=== PATIENT | male | born 1960 | race Caucasian/White ===

== ENCOUNTER → 2017-03-24 | Outpatient (CLI) | payer OTHER ==
[~2017-03-24] MED LIST: ASPCH81X PO; COQ10 PO; CRS5 PO; DUTA0.5C PO; EZET10TA63 PO; IRBE-43 PO; OMEG10007 PO; PANT40TA PO; TAMS0.4C38 PO
--- NOTE | 2017-03-24 11:54 | DIAGNOSTIC IMAGING REPORT ---
BONY ORBITS 3 VIEWS CLINICAL HISTORY: MRI clearance. FINDINGS: 3 views of the bony orbits are obtained. No prior studies are available for comparison at the time of dictation. There is no radiodense/metallic foreign body seen in the region of the bony orbits. The bony orbits are intact as imaged. The visualized paranasal sinuses and the mastoid air cells appear clear. The imaged calvarium appears intact. IMPRESSION: There is no radiodense/metallic foreign body seen in the region of the bony orbits. Electronically signed by: King Still M.D. 03/24/2017 11:53 AM Dictated Date/Time: 03/24/2017 11:52 AM
--- NOTE | 2017-03-24 13:08 | DIAGNOSTIC IMAGING REPORT ---
Right shoulder LEFT UPPER EXT JOINT WITHOUT CLINICAL HISTORY: PAIN L SHOULDER posttraumatic pain TECHNIQUE: Multiaxial MRI acquisition. All images are inverted COMPARISON STUDY: None FINDINGS: Signal characteristics the osseous structures are unremarkable. Again, all images are inverted. There is a full-thickness tear of the mid anterior aspect of the supraspinatus tendon. There is considerable hypertrophic change of the acromioclavicular joint creating components of impingement. Infraspinatus tendon is intact. There is a partial tear of the subscapularis tendon biceps tendon shows moderate atrophic change. IMPRESSION: 1. Note is made that all images are inverted 2. Full-thickness tear supraspinatus tendon with mild musculotendinous retraction of approximately 1.5 cm. 3. Hypertrophic change acromioclavicular joint creating mild impingement. 4. Partial tear subscapularis tendon. 5. Glenoid labrum is intact. Electronically signed by: Fabian Sharma M.D. 03/24/2017 1:06 PM Dictated Date/Time: 03/24/2017 12:55 PM
== END | disposition home or self-care (01) ==
LOC: C.MRIBC 11:24
PROVIDERS: ATTEND Orthopaedic Surgery
DX: M25.512 Pain in left shoulder (principal); S46.012A Strain of muscle(s) and tendon(s) of the rotator cuff of left shoulder, initial encounter; X58.XXXA Exposure to other specified factors, initial encounter; M89.312 Hypertrophy of bone, left shoulder

== ENCOUNTER → 2017-09-15 | Outpatient (CLI) | payer OTHER ==
[2017-09-15 16:40] LABS: BASO % 0.1 %; BASO ABS # 0.01 K/uL (0-0.2); COMPLETE YES; EOS % 1.2 %; IG% 0.1 %; LYMPH % 19.9 %; LYMPH ABS # 1.83 K/uL (1.2-3.4); MEAN CELL VOLUME 89.8 fL (80-100); MEAN CORPUSCULAR HEMOGLOBIN 31.2 pg (25-34); MEAN CORPUSCULAR HGB CONC 34.8 g/dl (32-36); MONO % 7.8 %; NEUT % 70.9 %; PLATELET COUNT 242 K/uL (130-400); WHITE BLOOD COUNT 9.21 K/uL (4.8-10.8)
[2017-09-15 17:22] LABS: BLOOD UREA NITROGEN 26 mg/dl (7-18); BUN/CREATININE RATIO 21.2 (10-20); CALCIUM 9.2 mg/dl (8.5-10.1); CARBON DIOXIDE 29 mmol/L (21-32); CHLORIDE 100 mmol/L (98-107); CREATININE 1.22 mg/dl (0.60-1.40); GLUCOSE 89 mg/dl (70-99); POTASSIUM 4.4 mmol/L (3.5-5.1); SODIUM 137 mmol/L (136-145)
== END | disposition home or self-care (01) ==
LOC: C.CPL 15:30
PROVIDERS: ATTEND Orthopaedic Surgery
DX: M75.122 Complete rotator cuff tear or rupture of left shoulder, not specified as traumatic (principal)

== ENCOUNTER → 2017-10-14 | Day surgery (SDC) | payer OTHER ==
[2017-09-17 10:18] VITALS: Ht 185.4 cm; Wt 106.8 kg
[~2017-10-14] VITALS: Ht 185.4 cm; Wt 106.8 kg
[~2017-10-14] MED LIST changes: +ATROPINE SULFATE 0.1 MG/ML 5ML SYR IV PRN; +BUPIVACAINE/EPINEPHRINE 0.25% 1:200,000 30 ML VIAL ONE; +CEFAZOLIN 2000MG IV PUSH 10 ML IV SCH; +DEXAMETHASONE SOD INJ 4 MG/ML VIAL ONE; +EpHEDrine SULFATE INJ 50 MG/ML AMP IV PRN; +EpINEphrine INJ 1MG/ML AMP 1 MG/ML AMP ONE; +FENTANYL CITRATE INJ 50 MCG/1 ML 2 ML VIAL ONE; +KETOROLAC TROMETHAMINE 30 MG/ML VIAL IV. PRN; +LACTATED RINGER'S 1000ML 1,000 ML IV SCH; +LACTATED RINGER'S 1000ML 500 ML IV SCH; +LIDOCAINE HCL 1% MPF 2 ML VIAL ONE; +LIDOCAINE HCL 2% 2 ML VIAL (20MG/ML) ONE; +MIDAZOLAM HCL 1 MG/ML 2ML VIAL ONE; +ONDANSETRON INJ 2 MG/ML 2 ML VIAL IV PRN; +ONDANSETRON INJ 2 MG/ML 2 ML VIAL ONE; +PROPOFOL IV EMULSION 10 MG/ML 20 ML VIAL IV ONE; +ROPIVACAINE 0.5% 5 MG/ML 30 ML VIAL ONE; +SODIUM CHLORIDE 0.9% 1000ML 1,000 ML IV SCH; +TRAM-10 PO; +TRAMADOL HCL 50 MG TAB PO PRN
--- NOTE | 2017-10-14 08:37 | History & Physical Bridge - [place] ---
H&P Re-Evaluation Bridge Note: I have examined the patient, reviewed the History & Physical and in the interval since the performance of the History & Physical I have noted the following changes of clinical significance: No changes noted
--- NOTE | 2017-10-14 12:18 | [facility] Post Operative Brief Note ---
Immediate Operative Summary Operative Date Oct 14, 2017. Pre-Operative Diagnosis Left Shoulder Rotator Cuff Tear Post-Operative Diagnosis Same Procedure(s) Performed Left Shoulder Arthroscopy, Larege Rotator Cufff Repair, Arthroscopic Bicep Tenodesis. Acromioplasty Surgeon Dr. Loza Lift Team Technician Surgeon(s) Adam Rios PA-C Estimated Blood Loss 5 cc Findings as above Specimens None Complication(s) None Disposition Recovery Room / PACU
--- NOTE | 2017-10-14 12:22 | Discharge Instructions-SurgCtr ---
Discharge Instructions Date of Service Oct 14, 2017. Visit Reason for Visit: Left Shoulder Full Thickness Rotator Cuff Tear Discharge Discharge Diagnosis / Problem: SAME ABOVE Discharge Goals Goal(s): Decrease discomfort, Improve function Medications Stopped Medications Name(s): fish oil, coq10, and aspirin - all stopped on 10-07-17 Restart Stopped Medication(s): MAY RESTART ALL ON 10/15/2017 Activity Recommendations Activity Limitations: as noted below Lifting Limitations: until after follow-up appointment Exercise/Sports Limitations: until after follow-up appointment Anesthesia . Post Anesthesia Instructions: If you have had General Anesthesia or IV Sedation: * Do not drive today. * Resume driving when surgeon permits. * Do not make important decisions or sign legal documents today. * Call surgeon for: 1. Temperature elevations greater than 101 degrees F. 2. Uncontrollable pain. 3. Excessive bleeding. 4. Persistent nausea and vomiting. 5. Medication intolerance (nausea, vomiting or rash). * For nausea and vomiting use only clear liquids such as: tea, soda, bouillon until nausea subsides, then gradually increase diet as tolerated. * If you have any concerns or questions, call your surgeon's office. If physician is unavailable and it is an emergency, call 911 or go to the nearest emergency room. . Instructions / Follow-Up Instructions / Follow-Up MEDICATIONS: * Resume previous medications unless instructed otherwise by your surgeon. * Always take pain medication on a full stomach or with food to avoid upset stomach. * Do not drink alcohol or drive while taking narcotics. * Ibuprofen or Tylenol may be taken if narcotic not needed. SPECIAL CARE INSTRUCTIONS: __ None _X_ Keep extremity elevated and iced x 48 hours; apply ice 20-30 minutes 8-10 times/day. May remove at night. __ Sling __24 hrs/day __ Remove at night _X_ Shoulder Immobilizer (MAY REMOVE AFTER 48 HOURS ONLY TO SHOWER AND FOR THERAPY) _X_ 24 hrs/day __ Remove at night _X_ Dressing __ Maintain until seen in office, may shower with plastic over site _X_ Remove dressings in 24-48 hours and then may shower _X_ Cover incisions with band-aids after showering __ Do not remove steri-strips Call physician if chills or temperature rises above 102 degrees or pain unrelieved by prescribed pain medications at . . Diet Recommendations Home Diet: no limitations Fluid Restriction: None Procedures Procedures Performed: Left Shoulder Arthroscopy, Larege Rotator Cufff Repair, Arthroscopic Bicep Tenodesis. Acromioplasty Pending Studies Studies pending at discharge: no Work Instructions Return To Work: after follow-up Lifting Limitations: NO LIFTING WITH LEFT ARM Medical Emergencies . Who to Call and When: Medical Emergencies: If at any time you feel your situation is an emergency, please call 911 immediately. . Non-Emergent Contact Non-Emergency issues call your: Primary Care Provider Call Non-Emergent contact if: you have a fever, temperature is above 101.5 . . "Provider Documentation" section prepared by Milan Rios. .
[2017-10-14 12:55] VITALS: TEMP 36.1
[2017-10-14 13:25] VITALS: BP 129/85; PULSE 59; O2SAT 96
--- NOTE | 2017-10-14 13:34 | Anesthesia Progress Nt - [facility] ---
Anesthesia Post Op Note Date & Time Oct 14, 2017 at 13:33 Vital Signs Pain Intensity: 0 Vital Signs Past 12 Hours Date Time Temp Pulse Resp B/P (MAP) Pulse Ox O2 Delivery O2 Flow Rate FiO2 10/14/17 13:25 59 16 129/85 (100) 96 Room Air 10/14/17 12:55 36.1 54 20 143/94 (110) 95 Room Air 10/14/17 12:50 36.4 10/14/17 12:49 67 15 10/14/17 12:49 65 15 90 10/14/17 12:46 140/83 (94) 10/14/17 12:44 66 12 10/14/17 12:44 67 12 97 10/14/17 12:43 Room Air 10/14/17 12:41 139/88 (106) 10/14/17 12:39 70 18 10/14/17 12:39 69 18 98 10/14/17 12:36 146/98 (109) 10/14/17 12:34 69 16 10/14/17 12:34 68 16 99 10/14/17 12:31 145/100 (113) 10/14/17 12:29 74 18 10/14/17 12:29 73 18 100 10/14/17 12:26 148/99 (106) 10/14/17 12:24 79 20 100 10/14/17 12:24 78 20 10/14/17 12:23 151/96 (116) 10/14/17 12:19 36.6 84 16 151/96 100 Diffusion Mask 5 10/14/17 10:31 145/83 10/14/17 10:30 73 10/14/17 10:30 74 16 99 10/14/17 10:26 130/85 10/14/17 10:25 70 18 98 10/14/17 10:25 70 10/14/17 10:21 135/76 10/14/17 10:20 66 10/14/17 10:20 66 20 98 10/14/17 10:16 130/81 10/14/17 10:15 65 18 98 10/14/17 10:15 65 10/14/17 10:14 67 20 98 10/14/17 10:14 67 10/14/17 10:11 123/81 10/14/17 10:09 65 98 10/14/17 10:09 65 10/14/17 10:06 126/78 10/14/17 10:04 72 18 98 10/14/17 10:04 69 10/14/17 10:01 142/87 10/14/17 09:59 60 17 149/94 99 10/14/17 09:59 59 10/14/17 09:58 64 16 149/94 (112) 98 Mask 6 10/14/17 09:54 65 96 10/14/17 09:54 64 10/14/17 09:49 65 10/14/17 09:49 69 97 10/14/17 09:44 61 10/14/17 09:44 61 96 10/14/17 09:39 61 97 10/14/17 09:39 60 10/14/17 09:34 59 96 10/14/17 09:34 58 10/14/17 09:29 61 96 10/14/17 09:29 61 10/14/17 09:24 65 10/14/17 09:24 66 96 10/14/17 09:19 62 95 10/14/17 09:19 62 10/14/17 09:14 64 97 10/14/17 09:14 65 10/14/17 09:09 63 96 10/14/17 09:09 65 10/14/17 09:04 64 96 10/14/17 09:04 66 10/14/17 08:16 36.6 67 16 134/93 (107) 94 Room Air Notes Mental Status: alert / awake / arousable, participated in evaluation Pt Amnestic to Procedure: Yes Nausea / Vomiting: adequately controlled Pain: adequately controlled Airway Patency, RR, SpO2: stable & adequate BP & HR: stable & adequate Hydration State: stable & adequate Anesthetic Complications: no major complications apparent
--- NOTE | 2017-10-14 13:57 | OPERATIVE REPORT ---
DATE OF OPERATION: 10/14/2017 PREOPERATIVE DIAGNOSIS: Large left rotator cuff tear with medially subluxated biceps tendon. POSTOPERATIVE DIAGNOSIS: Same. PROCEDURE: Left shoulder diagnostic arthroscopy with limited debridement, acromioplasty, large rotator cuff repair and arthroscopic biceps tenodesis. SURGEON: Dr. Ramesh Loza. POOL LIFEGUARD: Vinny Rios PA-C, whose assistance was necessary for positioning the arm and helping with instrumentation. ANESTHESIA: General with a left interscalene nerve block. COMPLICATIONS: None. CONDITION: Stable to PACU. INDICATIONS: Sulaiman is a very pleasant 57-year-old male who has been dealing with a several year history of left shoulder pain. He does not recall any trauma. MRI and clinical examination were diagnostic for a large rotator cuff tear with medially subluxated biceps tendon. After failing extensive conservative treatment, he elected to proceed with arthroscopy. DESCRIPTION OF PROCEDURE: On 10/14/2017, he arrived at [facility] for the above procedure. He was seen in the preoperative holding area and the operative extremity was identified and signed. He was given preoperative antibiotics and a left interscalene nerve block. He was taken back to the operating room, laid on the table in supine position and put under general anesthesia. He was then put into the beachchair position. The left shoulder was prepped and draped in sterile fashion. Time-out was done and the patient's operative extremity was properly identified. A scope was introduced into the posterior portal. Diagnostic arthroscopy showed no cartilage damage to the humeral head or the glenoid. There was some fraying of the anterior labrum. The biceps tendon was subluxated medially and very frayed. There was a tear of the upper border of the subscapularis. The entire supraspinatus was torn. The infraspinatus and teres minor were intact. An anterior portal was made. A shaver was used to do a limited debridement of the intraarticular structures. The long head of biceps tendon was tagged with an Arthrex FiberLink suture and then tenotomized for later tenodesis. The scope was then put into the subacromial space. A lateral portal was made. A shaver was used to do a complete subacromial and subdeltoid bursectomy. An ablator was used to tease the coracoacromial ligament off the undersurface of the acromion and a 5-0 marichuy was used to complete an acromioplasty of a large Bigliani type 3 acromion. A shaver was used to remove any excess debris and attention was turned to the rotator cuff. There was a tear of the entire supraspinatus. It was basically a crescent-shaped tear without retraction. There was a tear of the upper border of the subscapularis. The upper border of subscapularis was fixed first. An additional anterolateral portal was made and Lula cannulas were placed in each of the lateral portals. The lesser tuberosity was prepared with a ring curette and a microfracture. The upper border of subscap was then fixed with an Arthrex BioComposite SwiveLock suture anchor placed medially. Two FiberTapes were passed through the tendon and then pulled down to a lateral row anchor. This gave a nice knotless SpeedBridge repair. The FiberLink from the long head of the biceps tendon was incorporated into lateral anchor to complete an arthroscopic biceps tenodesis. Attention was then turned to the supraspinatus. The greater tuberosity was prepared with a ring curette and a microfracture. The rotator cuff was then fixed with an Arthrex SpeedBridge configuration using 4.75-mm BioComposite SwiveLock suture anchors and FiberTapes. This gave a really nice repair. Multiple pictures were taken. The scope was placed back into the glenohumeral joint and the articular margin of the rotator cuff had been restored. Pictures were taken. Arthroscopic instruments were removed from the shoulder. Portal sites were closed with 3-0 nylon. He was then placed in a soft dressing and an abduction arm sling. He was then extubated, transferred to a litter and taken to the postanesthesia care unit in stable condition. He tolerated the procedure well. I attest to the content of the Intraoperative Record and any orders documented therein. Any exception s are noted below.
== END | disposition home or self-care (01) ==
LOC: X.SURG 07:03
PROVIDERS: ATTEND Orthopaedic Surgery
DX: M75.102 Unspecified rotator cuff tear or rupture of left shoulder, not specified as traumatic (principal); M24.812 Other specific joint derangements of left shoulder, not elsewhere classified; I10 Essential (primary) hypertension; E78.00 Pure hypercholesterolemia, unspecified; N40.0 Benign prostatic hyperplasia without lower urinary tract symptoms; E66.9 Obesity, unspecified; Z79.899 Other long term (current) drug therapy; Z68.31 Body mass index [BMI] 31.0-31.9, adult